=== PATIENT | female | born 1970 | race African-American/Black ===

== ENCOUNTER 2020-07-06 12:37 | Emergency (ER) | payer MEDICAID ==
[~2020-07-06] VITALS: Ht 180.3 cm; Wt 109.1 kg
[2020-07-06 13:40] LABS: BASOPHILS % (AUTO) 0.5 % (0.0-2.0); EOSINOPHILS % (AUTO) 1.1 % (1.0-6.0); HEMOGLOBIN 10.8 g/dL (12.0-16.0); LYMPHOCYTES # (AUTO) 2.2 K/uL (1.0-4.8); MEAN CORPUSCULAR HEMOGLOBIN 27.3 pg (26.0-34.0); MEAN CORPUSCULAR HGB CONC 32.6 G/dL (31.0-37.0); MEAN CORPUSCULAR VOLUME 84 fL (80-100); MONOCYTES # (AUTO) 0.3 K/uL (0.1-1.0); MONOCYTES % (AUTO) 5.1 % (2.0-9.0); NEUTROPHILS # (AUTO) 4.1 K/uL (1.8-7.7); NEUTROPHILS % (AUTO) 61.3 % (40.0-70.0); PLATELET COUNT (AUTO) 253 K/uL (150-450); RED BLOOD CELL COUNT(AUTO) 3.95 MIL/uL (4.00-5.20); RED CELL DISTRIBUTION WIDTH 16.7 % (11.5-14.5)
[2020-07-06 13:50] LABS: ANION GAP 11 mmol/L (8-16); CALCIUM, TOTAL 8.8 mg/dL (8.8-10.5); CARBON DIOXIDE 26 mmol/L (22-29); CHLORIDE 103 mmol/L (98-107); CREATININE 1.07 mg/dL (0.60-1.30); GLOMERULAR FILTR. RATE CALC 55 mL/min (>60); GLUCOSE,RANDOM 88 mg/dL (70-110); POTASSIUM 3.6 mmol/L (3.5-5.1); SODIUM SERUM 140 mmol/L (136-145); UREA NITROGEN, BLOOD 10 mg/dL (7-18)
[2020-07-06 14:01] LABS: ALANINE AMINOTRANSFERASE 20 U/L (12-78); ALBUMIN 3.6 g/dL (3.4-5.0); ALKALINE PHOSPHATASE 59 U/L (46-116); ASPARTATE AMINOTRANSFERASE 15 U/L (15-37); BILIRUBIN,TOTAL 0.2 mg/dL (0.1-1.0); HCG,QUANTITATIVE < 1 mIU/mL (0-6); LIPASE 109 U/L (73-393); TOTAL PROTEIN, SERUM 7.6 g/dL (6.4-8.2)
[2020-07-06 14:05] LABS: APPEARANCE,URINE CLEAR (CLEAR); BILIRUBIN,URINE NEGATIVE (NEGATIVE); GLUCOSE, URINE (UA) NEGATIVE (NEGATIVE); KETONES,URINE NEGATIVE (NEGATIVE); LEUKOCYTE ESTERASE ,URINE NEGATIVE (NEGATIVE); NITRATE,URINE NEGATIVE (NEGATIVE); OCCULT BLOOD,URINE NEGATIVE (NEGATIVE); PH,URINE 6.5 (5.0-8.0); PROTEIN,URINE NEGATIVE (NEGATIVE); UROBILINOGEN,URINE 0.2 mg/dL (<=1.0)
[2020-07-06] MEDS ORDERED: SODIUM CHLORIDE 0.9% 100 ML ONE (14:42)
[2020-07-06] MEDS ORDERED: IOVERSOL 320 MG/ML 100 ML VIAL ONE (14:42)
[2020-07-06] MEDS ORDERED: ONDANSETRON HCL 4 MG/2 ML VIAL IVP ONE (14:45)
[2020-07-06] MEDS ORDERED: SODIUM CHLORIDE 0.9% 250 ML IV ONE (14:45)
[2020-07-06] MEDS ORDERED: MORPHINE SULFATE 4 MG/ML SYRINGE IVP ONE ×2 (14:45→18:30)
[2020-07-06 16:27] LABS: COVID AG,FIA SOURCE NASOPHARYNGEAL
[2020-07-06] MEDS ORDERED: LevETIRAcetam 1,500 MG in DEXTROSE 5%-WATER 100 ML IV ONE (16:30)
[2020-07-06] MEDS ORDERED: LORazepam 2 MG/ML VIAL IVP ONE (16:30)
[2020-07-06] MEDS ORDERED: METOCLOPRAMIDE HCL 5 MG/ML 2 ML VIAL IVP ONE (18:30)
[2020-07-06 19:21] VITALS: BP 171/103
== END 2020-07-06 19:47 | disposition home or self-care (01) ==
LOC: EMS 12:45
DX: R10.31 Right lower quadrant pain (principal); R11.2 Nausea with vomiting, unspecified; R56.9 Unspecified convulsions; I10 Essential (primary) hypertension; Z20.828 Contact with and (suspected) exposure to other viral communicable diseases; Z87.891 Personal history of nicotine dependence; Z91.018 Allergy to other foods
CPT/HCPCS: 36415; 74177; 76856; 80053; 81003; 83605; 83690; 84702; 85025; 87426; 96361; 96365; 96375; 96376; 99291; J0712; J2270; J2405; J2765; J7050 ×2; J7060; Q9967; U0003

== ENCOUNTER 2020-07-10 16:47 | Inpatient (IN) | payer MEDICAID ==
[~2020-07-10] VITALS: Ht 175.3 cm; Wt 102.8 kg
[2020-07-10 18:48] LABS: BASOPHILS % (AUTO) 0.5 % (0.0-2.0); EOSINOPHILS % (AUTO) 1.6 % (1.0-6.0); HEMATOCRIT 35.4 % (36-46); HEMOGLOBIN 11.6 g/dL (12.0-16.0); LYMPHOCYTES # (AUTO) 1.9 K/uL (1.0-4.8); LYMPHOCYTES % (AUTO) 33.1 % (22.0-44.0); MEAN CORPUSCULAR HEMOGLOBIN 27.4 pg (26.0-34.0); MEAN CORPUSCULAR HGB CONC 32.7 G/dL (31.0-37.0); MEAN CORPUSCULAR VOLUME 84 fL (80-100); MONOCYTES # (AUTO) 0.3 K/uL (0.1-1.0); MONOCYTES % (AUTO) 5.8 % (2.0-9.0); NEUTROPHILS # (AUTO) 3.4 K/uL (1.8-7.7); PLATELET COUNT (AUTO) 258 K/uL (150-450); RED BLOOD CELL COUNT(AUTO) 4.23 MIL/uL (4.00-5.20); RED CELL DISTRIBUTION WIDTH 16.3 % (11.5-14.5)
[2020-07-10 19:02] LABS: ANION GAP 12 mmol/L (8-16); CARBON DIOXIDE 22 mmol/L (22-29); CHLORIDE 101 mmol/L (98-107); CREATININE 1.44 mg/dL (0.60-1.30); GLOMERULAR FILTR. RATE CALC 47 mL/min (>60); GLUCOSE,RANDOM 112 mg/dL (70-110); POTASSIUM 3.6 mmol/L (3.5-5.1); SODIUM SERUM 135 mmol/L (136-145); UREA NITROGEN, BLOOD 13 mg/dL (7-18)
[2020-07-10 19:10] LABS: LACTIC ACID 1.4 mmol/L (0.4-2.0)
[2020-07-10 19:19] LABS: ALANINE AMINOTRANSFERASE 22 U/L (12-78); ALBUMIN 3.7 g/dL (3.4-5.0); ALKALINE PHOSPHATASE 65 U/L (46-116); ASPARTATE AMINOTRANSFERASE 16 U/L (15-37); BILIRUBIN,TOTAL 0.2 mg/dL (0.1-1.0); HCG,QUANTITATIVE < 1 mIU/mL (0-6); LIPASE 71 U/L (73-393)
[2020-07-10] MEDS ORDERED: SODIUM CHLORIDE 0.9% 1,000 ML IV ONE (19:45)
[2020-07-10] MEDS ORDERED: ONDANSETRON HCL 4 MG/2 ML VIAL IVP ONE (19:45)
[2020-07-10] MEDS ORDERED: HYDROmorphone 2 MG/ML SYRINGE IVP ONE ×2 (19:45→21:45)
[2020-07-10 20:50] LABS: APPEARANCE,URINE CLOUDY (CLEAR); BILIRUBIN,URINE NEGATIVE (NEGATIVE); GLUCOSE, URINE (UA) NEGATIVE (NEGATIVE); KETONES,URINE NEGATIVE (NEGATIVE); LEUKOCYTE ESTERASE ,URINE SMALL (NEGATIVE); NITRATE,URINE NEGATIVE (NEGATIVE); OCCULT BLOOD,URINE NEGATIVE (NEGATIVE); PH,URINE 6.5 (5.0-8.0); PROTEIN,URINE TRACE (NEGATIVE)
[2020-07-10 20:55] LABS: AMPHET/METH SCREEN,URINE NEGATIVE (NEGATIVE); BARBITURATE SCREEN, URINE NEGATIVE (NEGATIVE); BENZODIAZEPINES SCREEN,URINE NEGATIVE (NEGATIVE); CANNABINOID SCREEN,URINE POSITIVE (NEGATIVE); COCAINE SCREEN,URINE NEGATIVE (NEGATIVE); METHADONE SCREEN, URINE NEGATIVE (NEGATIVE); OPIATE SCREEN,URINE POSITIVE (NEGATIVE)
[2020-07-10 20:57] LABS: PHENCYCLIDINE SCREEN,URINE NEGATIVE (NEGATIVE)
[2020-07-10 21:23] LABS: RBC,URINE None Seen /HPF (0-2); SQUAMOUS EPITHELIAL CELL,UR Many /LPF (None Seen); WBC,URINE 0-2 /HPF (0-5)
[2020-07-10 21:24] LABS: BACTERIA,URINE None Seen /HPF (None Seen)
[2020-07-10] MEDS ORDERED: 0.9% SODIUM CHLORIDE 10 ML SYRINGE IVP PRN (21:45)
[2020-07-10] MEDS ORDERED: ONDANSETRON HCL 4 MG/2 ML VIAL IVP PRN (21:45)
[2020-07-10] MEDS ORDERED: LABETALOL HCL 5 MG/ML 20 ML VIAL IVP ONE (21:45)
[2020-07-10] MEDS ORDERED: KETOROLAC TROMETHAMINE 30 MG/ML VIAL IVP ONE (21:45)
[2020-07-10] MEDS ORDERED: ACETAMINOPHEN 325 MG TABLET PO PRN (21:45)
[2020-07-10] MEDS ORDERED: HYDROmorphone 2 MG/ML SYRINGE IVP PRN (22:00)
[2020-07-10] MEDS: RINGERS LACTATED IV SCH (22:24)
[2020-07-10] MEDS ORDERED: unknown bp med BU (22:31)
[2020-07-10 22:54] LABS: LACTATE DEHYDROGENASE 231 U/L (81-234)
[2020-07-10] MEDS: HEPARIN SODIUM,PORCINE 5,000 UNITS/ML VIAL SQ SCH (23:05)
[2020-07-11] VITALS (8 sets, daily range): BP systolic 126–180; BP diastolic 84–129
[2020-07-11] MEDS ORDERED: INFLUENZA VIRUS VACCINE QVS 2020-21 (6MO+)/PF 60 MCG/0.5 ML SYRINGE IM ONE (02:45)
[2020-07-11] MEDS ORDERED: PNEUMOCOCCAL VACCINE POLYVALENT 0.5 ML VIAL [PPSV23] IM ONE (02:45)
[2020-07-11] MEDS: DOCUSATE SODIUM 100 MG CAPSULE PO SCH ×2 (08:03→19:49)
[2020-07-11] MEDS: HEPARIN SODIUM,PORCINE 5,000 UNITS/ML VIAL SQ SCH ×2 (08:03→15:47)
[2020-07-11] MEDS: METOPROLOL TARTRATE 25 MG TABLET PO SCH ×2 (08:03→19:49)
[2020-07-11] MEDS: HYDROmorphone 2 MG/ML SYRINGE IVP PRN ×4 (08:04→21:59)
[2020-07-11 08:10] LABS: CREATININE 1.52 mg/dL (0.60-1.30); POTASSIUM 4.2 mmol/L (3.5-5.1)
[2020-07-11] MEDS: ONDANSETRON HCL 4 MG/2 ML VIAL IVP PRN (12:05)
[2020-07-11] MEDS ORDERED: [UNRECOGNIZED DRUG - REMARK] PO (12:06)
[2020-07-11] MEDS: AmLODIPine BESYLATE 5 MG TABLET PO SCH (12:08)
[2020-07-11] MEDS ORDERED: ONDA-104 PO (17:31)
[2020-07-11] MEDS ORDERED: HYDR-1475 PO (17:31)
[2020-07-11] MEDS ORDERED: LEVE500T8 PO (17:31)
[2020-07-11] MEDS ORDERED: LORazepam 2 MG/ML VIAL IVP PRN (17:45)
[2020-07-11] MEDS: CloNIDine HCL 0.1 MG TABLET PO PRN (18:26)
[2020-07-11 18:34] LABS: GLUCOMETER DEV NAME(LOC) 5N.3; GLUCOSE,POINT OF CARE 102 MG/DL (70-110)
[2020-07-11] MEDS: LevETIRAcetam 500 MG TABLET PO SCH (19:49)
[2020-07-11] MEDS: RINGERS LACTATED IV SCH (21:59)
[2020-07-12] MEDS: HEPARIN SODIUM,PORCINE 5,000 UNITS/ML VIAL SQ SCH ×3 (00:26→17:10)
[2020-07-12 04:58] LABS: BASOPHILS % (AUTO) 0.4 % (0.0-2.0); HEMATOCRIT 32.3 % (36-46); HEMOGLOBIN 10.6 g/dL (12.0-16.0); LYMPHOCYTES # (AUTO) 1.4 K/uL (1.0-4.8); LYMPHOCYTES % (AUTO) 27.5 % (22.0-44.0); MEAN CORPUSCULAR HEMOGLOBIN 27.8 pg (26.0-34.0); MEAN CORPUSCULAR HGB CONC 32.9 G/dL (31.0-37.0); MEAN CORPUSCULAR VOLUME 85 fL (80-100); MONOCYTES # (AUTO) 0.4 K/uL (0.1-1.0); MONOCYTES % (AUTO) 7.3 % (2.0-9.0); NEUTROPHILS # (AUTO) 3.1 K/uL (1.8-7.7); NEUTROPHILS % (AUTO) 61.8 % (40.0-70.0); PLATELET COUNT (AUTO) 210 K/uL (150-450); RED BLOOD CELL COUNT(AUTO) 3.82 MIL/uL (4.00-5.20); RED CELL DISTRIBUTION WIDTH 16.9 % (11.5-14.5)
[2020-07-12 05:00] VITALS: BP 145/87
[2020-07-12 05:07] LABS: CALCIUM, TOTAL 9.1 mg/dL (8.8-10.5); CREATININE 1.27 mg/dL (0.60-1.30); POTASSIUM 3.9 mmol/L (3.5-5.1)
[2020-07-12] MEDS: LevETIRAcetam 500 MG TABLET PO SCH ×2 (08:30→20:14)
[2020-07-12] MEDS: HYDROmorphone 2 MG/ML SYRINGE IVP PRN ×3 (08:30→20:22)
[2020-07-12] MEDS: METOPROLOL TARTRATE 25 MG TABLET PO SCH ×2 (08:30→20:14)
[2020-07-12] MEDS: AmLODIPine BESYLATE 5 MG TABLET PO SCH (08:30)
[2020-07-12] MEDS: DOCUSATE SODIUM 100 MG CAPSULE PO SCH ×2 (08:30→20:14)
[2020-07-12 08:54] VITALS: BP 157/99
[2020-07-12 11:43] VITALS: BP 145/94
[2020-07-12] MEDS ORDERED: MINERAL OIL 300 ML RECTAL PR ONE ×2 (14:15→14:30)
[2020-07-12] MEDS ORDERED: MINERAL OIL 133 ML ENEMA PR ONE (14:45)
[2020-07-12] MEDS: LACTULOSE 20 GM/30 ML SOLUTION UDCUP PO SCH ×2 (14:49→20:14)
[2020-07-12 15:40] VITALS: BP 144/90
[2020-07-12 19:15] VITALS: BP 149/82
[2020-07-13 00:44] VITALS: BP 140/93
[2020-07-13] MEDS: HEPARIN SODIUM,PORCINE 5,000 UNITS/ML VIAL SQ SCH ×3 (00:49→15:08)
[2020-07-13] MEDS: HYDROmorphone 2 MG/ML SYRINGE IVP PRN ×2 (02:45→08:14)
[2020-07-13 04:46] VITALS: BP 150/95
[2020-07-13 07:42] VITALS: BP 158/73
[2020-07-13] MEDS: LevETIRAcetam 500 MG TABLET PO SCH ×2 (08:05→19:57)
[2020-07-13] MEDS: AmLODIPine BESYLATE 5 MG TABLET PO SCH (08:05)
[2020-07-13] MEDS: METOPROLOL TARTRATE 25 MG TABLET PO SCH ×2 (08:05→19:57)
[2020-07-13] MEDS: DOCUSATE SODIUM 100 MG CAPSULE PO SCH ×2 (08:05→19:56)
[2020-07-13] MEDS: LACTULOSE 20 GM/30 ML SOLUTION UDCUP PO SCH ×2 (08:06→19:57)
[2020-07-13 11:14] VITALS: BP 146/94
[2020-07-13] MEDS ORDERED: ACETAMINOPHEN 325 MG TABLET PO PRN (11:30)
[2020-07-13] MEDS ORDERED: MINERAL OIL 133 ML ENEMA PR ONE (12:30)
[2020-07-13] MEDS: POLYETHYLENE GLYCOL 3350 17 GM PACKET PO SCH ×2 (15:08→19:57)
[2020-07-13 17:50] VITALS: BP 181/101
[2020-07-13] MEDS: ACETAMINOPHEN 325 MG TABLET PO PRN (18:13)
[2020-07-13] MEDS: CloNIDine HCL 0.1 MG TABLET PO PRN (18:22)
[2020-07-13 19:39] VITALS: BP 177/106
[2020-07-13] MEDS: MINERAL OIL 133 ML ENEMA PR SCH (21:00)
[2020-07-14] VITALS (9 sets, daily range): BP systolic 122–172; BP diastolic 75–123
[2020-07-14] MEDS: HEPARIN SODIUM,PORCINE 5,000 UNITS/ML VIAL SQ SCH ×3 (01:45→16:24)
[2020-07-14] MEDS: CloNIDine HCL 0.1 MG TABLET PO PRN (01:45)
[2020-07-14] MEDS: ACETAMINOPHEN 325 MG TABLET PO PRN ×3 (01:53→15:29)
[2020-07-14] MEDS: MINERAL OIL 133 ML ENEMA PR SCH ×2 (09:00→21:00)
[2020-07-14] MEDS: AmLODIPine BESYLATE 5 MG TABLET PO SCH (09:09)
[2020-07-14] MEDS: METOPROLOL TARTRATE 25 MG TABLET PO SCH ×2 (09:09→21:45)
[2020-07-14] MEDS: LevETIRAcetam 500 MG TABLET PO SCH ×2 (09:09→21:45)
[2020-07-14] MEDS: DOCUSATE SODIUM 100 MG CAPSULE PO SCH ×2 (09:09→21:45)
[2020-07-14] MEDS: LACTULOSE 20 GM/30 ML SOLUTION UDCUP PO SCH ×2 (09:10→21:45)
[2020-07-14] MEDS: POLYETHYLENE GLYCOL 3350 17 GM PACKET PO SCH ×3 (09:20→21:00)
[2020-07-14] MEDS: ONDANSETRON HCL 4 MG/2 ML VIAL IVP PRN (12:23)
[2020-07-14] MEDS ORDERED: PEG 3350/NA SULF,BICARB,CL/KCL 4000 ML SOLUTION PO ONE (14:30)
[2020-07-14 17:55] LABS: COVID AG,FIA SOURCE NASOPHARYNGEAL
[2020-07-15 04:17] VITALS: BP 174/100
[2020-07-15] MEDS: CloNIDine HCL 0.1 MG TABLET PO PRN (04:19)
[2020-07-15 05:29] VITALS: BP 143/85
[2020-07-15] MEDS ORDERED: SODIUM CHLORIDE 0.9% 1,000 ML ONE (07:53)
[2020-07-15 08:10] VITALS: BP 156/103
[2020-07-15] MEDS: MINERAL OIL 133 ML ENEMA PR SCH (09:00)
[2020-07-15] MEDS: LACTULOSE 20 GM/30 ML SOLUTION UDCUP PO SCH (09:00)
[2020-07-15] MEDS: DOCUSATE SODIUM 100 MG CAPSULE PO SCH (09:00)
[2020-07-15] MEDS: POLYETHYLENE GLYCOL 3350 17 GM PACKET PO SCH (09:00)
[2020-07-15] MEDS ORDERED: HYOSCYAMINE SULFATE 0.125 MG DTAB PO PRN (10:15)
[2020-07-15] MEDS: METOPROLOL TARTRATE 25 MG TABLET PO SCH (10:27)
[2020-07-15] MEDS: AmLODIPine BESYLATE 5 MG TABLET PO SCH (10:27)
[2020-07-15] MEDS: ACETAMINOPHEN 325 MG TABLET PO PRN (10:27)
[2020-07-15] MEDS: LevETIRAcetam 500 MG TABLET PO SCH (10:27)
[2020-07-15] MEDS: HEPARIN SODIUM,PORCINE 5,000 UNITS/ML VIAL SQ SCH ×2 (10:28)
[2020-07-15] MEDS ORDERED: HYOSCYAMINE SULFATE 0.125 MG TAB PO PRN (10:45)
[2020-07-15] MEDS ORDERED: PredniSONE 10 MG TABLET PO SCH (11:00)
[2020-07-15 11:28] VITALS: BP 146/93
[2020-07-15] MEDS ORDERED: HYOS-28 PO (11:50)
[2020-07-15] MEDS ORDERED: POLY17PO47 PO (11:50)
[2020-07-15] MEDS ORDERED: PRED10 PO (11:50)
[2020-07-15] MEDS ORDERED: TRAM50TA4 PO (11:50)
[2020-07-15] MEDS ORDERED: METO25 PO (11:50)
[2020-07-15] MEDS ORDERED: LACT30L PO (11:50)
[2020-07-15] MEDS ORDERED: LIDOCAINE/PF 2% 5 ML VIAL IM ONE (13:09)
[2020-07-15] MEDS ORDERED: PROPOFOL 1% 20 ML VIAL IVP ONE (13:09)
== END 2020-07-15 13:10 | disposition home or self-care (01) | DRG 254 ==
LOC: EMS 16:47 → 5S 22:00
PROVIDERS: ADMIT Internal Medicine; ATTEND Internal Medicine
PROC: 0DJD8ZZ Inspection of Lower Intestinal Tract, Via Natural or Artificial Opening Endoscopic (ICD-10-PCS; principal; 2020-07-15 09:30)
DX: K65.4 Sclerosing mesenteritis (principal); K57.30 Diverticulosis of large intestine without perforation or abscess without bleeding; K59.00 Constipation, unspecified; I10 Essential (primary) hypertension; E66.9 Obesity, unspecified; Z68.33 Body mass index [BMI] 33.0-33.9, adult; D64.9 Anemia, unspecified; R30.0 Dysuria; Z86.73 Personal history of transient ischemic attack (TIA), and cerebral infarction without residual deficits; R56.9 Unspecified convulsions; Z87.891 Personal history of nicotine dependence; Z88.8 Allergy status to other drugs, medicaments and biological substances; K58.9 Irritable bowel syndrome, unspecified; F32.9 Major depressive disorder, single episode, unspecified; F41.9 Anxiety disorder, unspecified; Z20.828 Contact with and (suspected) exposure to other viral communicable diseases
CPT/HCPCS: 74176; 83605; 83615; 87426; 93005; G0378; G0480; J1170; J1644; J1885; J2060; J2405; J2704; J3490; J7030; J7120; 36415-L1; 36415-TC; 71045-TC; J7512; Z7610

== ENCOUNTER 2021-10-09 15:13 | Inpatient (IN) | payer MEDICAID, OTHER ==
[~2021-10-09] VITALS: Ht 162.6 cm; Wt 104.5 kg
[~2021-10-09 15:13] MED LIST: HYDR25TA2 PO; HYOS-28 PO; LACT30L PO; LEVE500T8 PO; METO25 PO; NIFE-46 PO; ONDA-104 PO; POLY17PO47 PO; RIVA15TA PO; RIVA20TA PO
[2021-10-09 15:58] LABS: BASOPHILS % (AUTO) 0.6 % (0.0-2.0); EOSINOPHILS % (AUTO) 0.3 % (1.0-6.0); HEMATOCRIT 38.6 % (36-46); HEMOGLOBIN 12.9 g/dL (12.0-16.0); LYMPHOCYTES # (AUTO) 1.8 K/uL (1.0-4.8); LYMPHOCYTES % (AUTO) 39.1 % (22.0-44.0); MEAN CORPUSCULAR HEMOGLOBIN 30.1 pg (26.0-34.0); MEAN CORPUSCULAR HGB CONC 33.5 G/dL (31.0-37.0); MEAN CORPUSCULAR VOLUME 90 fL (80-100); MONOCYTES # (AUTO) 0.6 K/uL (0.1-1.0); MONOCYTES % (AUTO) 13.2 % (2.0-9.0); NEUTROPHILS # (AUTO) 2.1 K/uL (1.8-7.7); NEUTROPHILS % (AUTO) 46.8 % (40.0-70.0); PLATELET COUNT (AUTO) 257 K/uL (150-450); RED CELL DISTRIBUTION WIDTH 13.6 % (11.5-14.5)
[2021-10-09 16:06] LABS: ANION GAP 10 mmol/L (8-16); CALCIUM, TOTAL 9.2 mg/dL (8.8-10.5); CARBON DIOXIDE 25 mmol/L (22-29); CHLORIDE 104 mmol/L (98-107); CREATININE 1.04 mg/dL (0.60-1.30); GLOMERULAR FILTR. RATE CALC > 60 mL/min (>60); GLUCOSE,RANDOM 101 mg/dL (70-110); POTASSIUM 3.6 mmol/L (3.5-5.1); SODIUM SERUM 139 mmol/L (136-145); UREA NITROGEN, BLOOD 9 mg/dL (7-18)
[2021-10-09 16:10] LABS: PROTHROMBIN TIME 10.9 SEC (9.4-11.6)
[2021-10-09 16:24] LABS: B-TYPE NATRIURETIC PEPTIDE 18 pg/mL (0-100)
[2021-10-09 16:32] LABS: ALANINE AMINOTRANSFERASE 22 U/L (12-78); ALBUMIN 3.8 g/dL (3.4-5.0); ALKALINE PHOSPHATASE 71 U/L (46-116); ASPARTATE AMINOTRANSFERASE 21 U/L (15-37); BILIRUBIN,TOTAL 0.3 mg/dL (0.1-1.0); CREATINE KINASE, TOTAL ONLY 128 U/L (26-192); TOTAL PROTEIN, SERUM 8.8 g/dL (6.4-8.2)
[2021-10-09] MEDS ORDERED: HydrALAZINE HCL 20 MG/ML VIAL IVP ONE (17:15)
[2021-10-09] MEDS ORDERED: ASPIRIN 81 MG CHEWABLE TABLET PO ONE (17:30)
[2021-10-09] MEDS ORDERED: NITROGLYCERIN 0.4 MG SUBLINGUAL TABLET #25 SL ONE (17:30)
[2021-10-09 18:00] LABS: D-DIMER 0.57 mg/L FEU (0.00-0.50)
[2021-10-09] MEDS ORDERED: NITROGLYCERIN 2% (1 GM=INCH) PACKET TP ONE (18:00)
[2021-10-09] MEDS ORDERED: ONDANSETRON HCL 4 MG/2 ML VIAL IVP ONE (18:00)
[2021-10-09] MEDS ORDERED: MORPHINE SULFATE 4 MG/ML SYRINGE IVP ONE (18:00)
[2021-10-09 18:15] LABS: COVID AG,FIA SOURCE NASOPHARYNGEAL
[2021-10-09] MEDS ORDERED: LABETALOL HCL 5 MG/ML 20 ML VIAL IVP ONE (18:15)
[2021-10-09] MEDS ORDERED: IOHEXOL 350 MG/ML 150 ML VIAL ONE (18:32)
[2021-10-09] MEDS ORDERED: SODIUM CHLORIDE 0.9% 100 ML ONE (18:32)
[2021-10-09] MEDS ORDERED: ACETAMINOPHEN 325 MG TABLET PO PRN (21:45)
[2021-10-09] MEDS ORDERED: ONDANSETRON HCL 4 MG TABLET PO PRN (21:45)
[2021-10-09] MEDS ORDERED: LevETIRAcetam 500 MG TABLET PO SCH (21:45)
[2021-10-09] MEDS ORDERED: ZOLPIDEM TARTRATE 10 MG TABLET PO PRN (21:45)
[2021-10-09] MEDS ORDERED: ONDANSETRON HCL 4 MG/2 ML VIAL IVP PRN (21:45)
[2021-10-09] MEDS ORDERED: HYDROCODONE/ACETAMINOPHEN 5-325 MG TABLET PO PRN (21:45)
[2021-10-09] MEDS ORDERED: METOPROLOL TARTRATE 25 MG TABLET PO SCH (21:45)
[2021-10-09] MEDS ORDERED: MORPHINE SULFATE 2 MG/ML SYRINGE IVP PRN (21:45)
[2021-10-09] MEDS ORDERED: MAGNESIUM HYDROXIDE SUSPENSION 30 ML UDCUP PO PRN (21:45)
[2021-10-09] MEDS ORDERED: IPRATROPIUM BROMIDE 0.5 MG/2.5 ML NEB SOLUTION NEB PRN (21:45)
[2021-10-10] MEDS ORDERED: NITROGLYCERIN 2% (1 GM=INCH) PACKET TP SCH
[2021-10-10 00:44] VITALS: BP 145/110
[2021-10-10 01:05] LABS: APPEARANCE,URINE CLEAR (CLEAR); BILIRUBIN,URINE NEGATIVE (NEGATIVE); GLUCOSE, URINE (UA) NEGATIVE (NEGATIVE); KETONES,URINE NEGATIVE (NEGATIVE); LEUKOCYTE ESTERASE ,URINE NEGATIVE (NEGATIVE); NITRATE,URINE NEGATIVE (NEGATIVE); OCCULT BLOOD,URINE NEGATIVE (NEGATIVE); PH,URINE 6.5 (5.0-8.0); PROTEIN,URINE POS 1+ (NEGATIVE)
[2021-10-10] MEDS ORDERED: INFLUENZA VIRUS VACCINE QVS 2021-22 (6MO+)/PF 60 MCG/0.5 ML SYRINGE IM. ONE (04:00)
[2021-10-10 04:22] VITALS: BP 143/99
[2021-10-10 07:09] LABS: CHOL/HDL RATIO 2.7 (3.9-5.7)
[2021-10-10] MEDS ORDERED: POLYETHYLENE GLYCOL 3350 17 GM PACKET PO SCH (09:00)
[2021-10-10] MEDS ORDERED: PANTOPRAZOLE SODIUM 40 MG/VIAL IVP SCH (09:00)
[2021-10-10] MEDS ORDERED: HYDROCHLOROTHIAZIDE 25 MG TABLET PO SCH (09:00)
[2021-10-10] MEDS ORDERED: ASPIRIN 81 MG CHEWABLE TABLET PO SCH (09:00)
[2021-10-10] MEDS ORDERED: NIFEdipine 60 MG ER TABLET PO SCH (09:00)
[2021-10-10] MEDS ORDERED: DOCUSATE SODIUM 100 MG CAPSULE PO SCH (09:00)
== END 2021-10-10 05:36 | disposition left against medical advice (07) | DRG 137 ==
LOC: EMS 15:18 → 5N 23:00
PROVIDERS: ADMIT Hospitalist; ATTEND Hospitalist
DX: U07.1 COVID-19 (principal); R56.9 Unspecified convulsions; E66.9 Obesity, unspecified; R07.9 Chest pain, unspecified; I25.10 Atherosclerotic heart disease of native coronary artery without angina pectoris; E87.6 Hypokalemia; F12.90 Cannabis use, unspecified, uncomplicated; I10 Essential (primary) hypertension; G89.21 Chronic pain due to trauma; K58.9 Irritable bowel syndrome, unspecified; I25.2 Old myocardial infarction; Z86.711 Personal history of pulmonary embolism; Z86.73 Personal history of transient ischemic attack (TIA), and cerebral infarction without residual deficits; Z95.5 Presence of coronary angioplasty implant and graft; Z87.891 Personal history of nicotine dependence; Z68.39 Body mass index [BMI] 39.0-39.9, adult; Z53.29 Procedure and treatment not carried out because of patient's decision for other reasons
CPT/HCPCS: 71045; 71275; 80053; 80061; 82550; 83880; 84484; 85025; 85379; 85610; 85730; 93005; 99285; J0360; J2270; J2405; J3490; J7050; Q9967; 36415-L1; 36415-TC

== ENCOUNTER 2023-04-12 17:32 | Inpatient (IN) | payer OTHER ==
[~2023-04-12] VITALS: Ht 177.8 cm; Wt 103.0 kg
[~2023-04-12 17:32] MED LIST changes: +LACT10SO10 PO; -LACT30L PO; -RIVA15TA PO
[2023-04-12] MEDS ORDERED: LORazepam 2 MG/ML VIAL ONE (17:39)
[2023-04-12] MEDS ORDERED: LORazepam 2 MG/ML VIAL IVP ONE (17:45)
[2023-04-12] MEDS ORDERED: LevETIRAcetam 1,000 MG in DEXTROSE 5%-WATER 100 ML IV ONE (17:45)
[2023-04-12] MEDS ORDERED: LABETALOL HCL 5 MG/ML 20 ML VIAL IVP PRN ×2 (17:45)
[2023-04-12] MEDS ORDERED: ATOR40TA28 PO (18:08)
[2023-04-12] MEDS ORDERED: LEVE250T4 PO (18:08)
[2023-04-12] MEDS ORDERED: DIVA-112 PO (18:08)
[2023-04-12] MEDS ORDERED: LORA-1000 PO (18:08)
[2023-04-12] MEDS ORDERED: GABA-1181 PO ×2 (18:08)
[2023-04-12] MEDS ORDERED: ALPR-705 PO (18:08)
[2023-04-12] MEDS ORDERED: DULO20CA71 PO (18:08)
[2023-04-12 18:28] LABS: BASOPHILS % (AUTO) 0.5 % (0.0-2.0); EOSINOPHILS % (AUTO) 2.8 % (1.0-6.0); LYMPHOCYTES # (AUTO) 2.5 K/uL (1.0-4.8); LYMPHOCYTES % (AUTO) 30.5 % (22.0-44.0); MEAN CORPUSCULAR HEMOGLOBIN 30.9 pg (26.0-34.0); MEAN CORPUSCULAR HGB CONC 32.6 G/dL (31.0-37.0); MEAN CORPUSCULAR VOLUME 95 fL (80-100); MONOCYTES # (AUTO) 0.5 K/uL (0.1-1.0); MONOCYTES % (AUTO) 6.7 % (2.0-9.0); NEUTROPHILS # (AUTO) 4.8 K/uL (1.8-7.7); NEUTROPHILS % (AUTO) 59.5 % (40.0-70.0); RED BLOOD CELL COUNT(AUTO) 4.21 MIL/uL (4.00-5.20); RED CELL DISTRIBUTION WIDTH 14.3 % (11.5-14.5)
[2023-04-12 18:33] LABS: ANION GAP 8 mmol/L (8-16); CALCIUM, TOTAL 9.5 mg/dL (8.8-10.5); CARBON DIOXIDE 25 mmol/L (22-29); CHLORIDE 103 mmol/L (98-107); CREATININE 1.06 mg/dL (0.60-1.30); GLOMERULAR FILTR. RATE CALC > 60 mL/min (>60); GLUCOSE,RANDOM 92 mg/dL (70-110); POTASSIUM 4.1 mmol/L (3.5-5.1); SODIUM SERUM 136 mmol/L (136-145)
[2023-04-12 18:35] LABS: INR 1.1 (0.9-1.1); PROTHROMBIN TIME 11.2 SEC (9.4-11.6)
[2023-04-12 18:38] LABS: ALANINE AMINOTRANSFERASE 30 U/L (12-78); ALBUMIN 3.6 g/dL (3.4-5.0); ALKALINE PHOSPHATASE 81 U/L (46-116); ASPARTATE AMINOTRANSFERASE 21 U/L (15-37); BILIRUBIN,TOTAL 0.4 mg/dL (0.1-1.0); TOTAL PROTEIN, SERUM 8.6 g/dL (6.4-8.2)
[2023-04-12 18:47] LABS: PLATELET COUNT (AUTO) 240 K/uL (150-450)
[2023-04-12 18:48] LABS: PLATELET MORPHOLOGY COMMENT LARGE PLTS PRESENT
[2023-04-12] MEDS ORDERED: ACETAMINOPHEN 325 MG TABLET PO PRN (19:45)
[2023-04-12] MEDS ORDERED: HYOSCYAMINE SULFATE 0.125 MG TAB PO PRN (19:45)
[2023-04-12] MEDS ORDERED: CHLO25TA3 PO (19:45)
[2023-04-12] MEDS ORDERED: PANT40TA54 PO (19:45)
[2023-04-12] MEDS ORDERED: PLEC3TAB2 PO (19:45)
[2023-04-12] MEDS ORDERED: CHOL200074 PO (19:45)
[2023-04-12] MEDS ORDERED: ONDANSETRON HCL 4 MG/2 ML VIAL IVP PRN (19:45)
[2023-04-12] MEDS ORDERED: LABE200T83 PO (19:45)
[2023-04-12] MEDS ORDERED: GABAPENTIN 300 MG CAPSULE PO SCH (21:00)
[2023-04-12 21:15] LABS: COVID AG,FIA SOURCE NASAL SWAB
[2023-04-12] MEDS: GABAPENTIN 300 MG CAPSULE PO SCH (21:26)
[2023-04-12] MEDS: LevETIRAcetam 250 MG TABLET PO SCH (21:26)
[2023-04-12] MEDS: METOPROLOL TARTRATE 25 MG TABLET PO SCH (21:26)
[2023-04-12] MEDS: ATORVASTATIN CALCIUM 40 MG TABLET PO SCH (21:26)
[2023-04-12] MEDS: DIVALPROEX SODIUM 500 MG DR TABLET PO SCH (21:26)
[2023-04-12] MEDS: LACTULOSE 20 GM/30 ML SOLUTION UDCUP PO SCH (21:27)
[2023-04-12] MEDS: DOCUSATE SODIUM 100 MG CAPSULE PO SCH (21:27)
[2023-04-12] MEDS: ALPRAZolam 0.25 MG TABLET PO PRN (21:47)
[2023-04-13] MEDS ORDERED: HEPARIN SODIUM,PORCINE 5,000 UNITS/ML VIAL SQ SCH
[2023-04-13] MEDS ORDERED: HYOSCYAMINE SULFATE 0.125 MG TAB PO PRN (01:30)
[2023-04-13 02:00] VITALS: BP 137/99; PULSE 80; RESP 17; TEMP 98.3
[2023-04-13 05:43] VITALS: BP 116/67; PULSE 69; RESP 19; TEMP 98
[2023-04-13 07:11] VITALS: BP 119/82; PULSE 70; RESP 17; TEMP 98.4
[2023-04-13] MEDS ORDERED: RIVAROXABAN 20 MG TABLET PO ONE (09:00)
[2023-04-13] MEDS ORDERED: DULoxetine HCL 20 MG CAPSULE PO SCH (09:00)
[2023-04-13] MEDS: LevETIRAcetam 250 MG TABLET PO SCH (09:00)
[2023-04-13] MEDS ORDERED: GADOTERATE MEGLUMINE 10 MMOL/20 ML VIAL IVP ONE (09:30)
[2023-04-13 11:21] VITALS: BP 139/87; PULSE 70; RESP 18; TEMP 98.1
[2023-04-13] MEDS: DULoxetine HCL 20 MG CAPSULE PO SCH (11:38)
[2023-04-13] MEDS: LevETIRAcetam 500 MG TABLET PO SCH ×2 (11:42→21:11)
[2023-04-13] MEDS: DOCUSATE SODIUM 100 MG CAPSULE PO SCH ×2 (11:44→21:11)
[2023-04-13] MEDS: METOPROLOL TARTRATE 25 MG TABLET PO SCH ×2 (11:44→21:13)
[2023-04-13] MEDS: LACTULOSE 20 GM/30 ML SOLUTION UDCUP PO SCH ×2 (11:44→21:11)
[2023-04-13] MEDS: GABAPENTIN 300 MG CAPSULE PO SCH ×3 (11:44→21:10)
[2023-04-13] MEDS: ALPRAZolam 0.25 MG TABLET PO PRN ×2 (12:23→21:11)
[2023-04-13 15:59] VITALS: BP 137/101; PULSE 72; RESP 21; TEMP 98.7
[2023-04-13 19:45] VITALS: BP 139/96; PULSE 76; RESP 20; TEMP 98.1
[2023-04-13] MEDS: ATORVASTATIN CALCIUM 40 MG TABLET PO SCH (21:11)
[2023-04-13] MEDS: HYDROCODONE/ACETAMINOPHEN 5-325 MG TABLET PO PRN (21:11)
[2023-04-13] MEDS: DIVALPROEX SODIUM 500 MG DR TABLET PO SCH (21:11)
[2023-04-14 00:15] VITALS: BP 154/94; PULSE 64; RESP 20; TEMP 97.6
[2023-04-14 04:09] VITALS: BP 125/78; PULSE 64; RESP 20; TEMP 97.9
[2023-04-14 07:15] VITALS: BP 155/89; PULSE 70; RESP 17; TEMP 98.3
[2023-04-14] MEDS: LevETIRAcetam 500 MG TABLET PO SCH ×2 (08:32→21:31)
[2023-04-14] MEDS: LACTULOSE 20 GM/30 ML SOLUTION UDCUP PO SCH ×2 (08:33→21:29)
[2023-04-14] MEDS: GABAPENTIN 300 MG CAPSULE PO SCH ×3 (08:33→21:30)
[2023-04-14] MEDS: METOPROLOL TARTRATE 25 MG TABLET PO SCH ×2 (08:33→21:30)
[2023-04-14] MEDS: DULoxetine HCL 20 MG CAPSULE PO SCH (08:33)
[2023-04-14] MEDS: DOCUSATE SODIUM 100 MG CAPSULE PO SCH ×2 (08:33→21:29)
[2023-04-14] MEDS: HYDROCODONE/ACETAMINOPHEN 5-325 MG TABLET PO PRN ×3 (08:49→21:30)
[2023-04-14] MEDS: ALPRAZolam 0.25 MG TABLET PO PRN ×3 (08:49→21:37)
[2023-04-14 11:48] VITALS: BP 123/81; PULSE 70; RESP 19; TEMP 98
[2023-04-14] MEDS ORDERED: LEVE500T20 PO ×3 (14:08→17:19)
[2023-04-14 15:10] VITALS: BP 130/87; PULSE 65; RESP 21; TEMP 98.4
[2023-04-14] MEDS ORDERED: RIVAROXABAN 20 MG TABLET PO SCH (18:00)
[2023-04-14 20:04] VITALS: BP 161/99; PULSE 66; RESP 20; TEMP 98.1
[2023-04-14] MEDS: DIVALPROEX SODIUM 500 MG DR TABLET PO SCH (21:29)
[2023-04-14] MEDS: ATORVASTATIN CALCIUM 40 MG TABLET PO SCH (21:30)
[2023-04-15 00:07] VITALS: BP 132/86; PULSE 70; RESP 19; TEMP 97.6
[2023-04-15 06:40] VITALS: BP 137/91; PULSE 63; RESP 18; TEMP 97.6
[2023-04-15] MEDS: DULoxetine HCL 20 MG CAPSULE PO SCH (08:02)
[2023-04-15] MEDS: ALPRAZolam 0.25 MG TABLET PO PRN (08:02)
[2023-04-15] MEDS: LACTULOSE 20 GM/30 ML SOLUTION UDCUP PO SCH (08:02)
[2023-04-15] MEDS: HYDROCODONE/ACETAMINOPHEN 5-325 MG TABLET PO PRN (08:02)
[2023-04-15] MEDS: LevETIRAcetam 500 MG TABLET PO SCH (08:02)
[2023-04-15] MEDS: METOPROLOL TARTRATE 25 MG TABLET PO SCH (08:02)
[2023-04-15] MEDS: GABAPENTIN 300 MG CAPSULE PO SCH (08:02)
[2023-04-15] MEDS: DOCUSATE SODIUM 100 MG CAPSULE PO SCH (08:02)
[2023-04-15 08:09] VITALS: BP 144/92; PULSE 62; RESP 18; TEMP 97.8
[2023-04-15] MEDS ORDERED: DIVA-112 PO ×2 (13:52→14:19)
== END 2023-04-15 16:30 | DRG 53 ==
LOC: EMS 17:37 → 5N 04-13 01:12 → EMS 04-13 01:15
PROVIDERS: ADMIT Internal Medicine; ATTEND Internal Medicine
DX: G40.901 Epilepsy, unspecified, not intractable, with status epilepticus (principal); J96.01 Acute respiratory failure with hypoxia; R47.01 Aphasia; I69.354 Hemiplegia and hemiparesis following cerebral infarction affecting left non-dominant side; I10 Essential (primary) hypertension; R47.1 Dysarthria and anarthria; Z20.822 Contact with and (suspected) exposure to COVID-19; K58.9 Irritable bowel syndrome, unspecified; F41.9 Anxiety disorder, unspecified; Z79.01 Long term (current) use of anticoagulants; Z87.59 Personal history of other complications of pregnancy, childbirth and the puerperium; Z86.718 Personal history of other venous thrombosis and embolism; Z87.891 Personal history of nicotine dependence; Z86.711 Personal history of pulmonary embolism; Z79.899 Other long term (current) drug therapy; Z91.018 Allergy to other foods; I25.2 Old myocardial infarction; Z87.440 Personal history of urinary (tract) infections
CPT/HCPCS: 70553; 71045; 80053; 80164; 82140; 82948; 84484; 85025; 85610; 85730; 87081; 92521; 93005; 97116; 97163; 97167; 97530; 97535; 99285; J0712; J1644; J2060; J7060; 36415-L1; 36415-TC; 70450; 70450-TC